=== PATIENT | male | born 1935 | race Hispanic/Latino ===

== ENCOUNTER → 2017-10-23 | Outpatient (CLI) | payer OTHER ==
[~2017-10-23] MED LIST: AMIO200T2 PO; ASPI-555 PO; ATOR40TA71 PO; CIPR-278 PO; INSU100I13 SQ; LEVO250T2 PO; LISI-617 PO; TAMS-1 PO; TYL3 PO
== END | disposition home or self-care (01) ==
LOC: RAH 10:46
PROVIDERS: ATTEND Urology
DX: N20.0 Calculus of kidney (principal)
CPT/HCPCS: 74018; 76100

== ENCOUNTER 2017-12-01 10:00 | Day surgery (SDC) | payer OTHER ==
[2017-11-30 12:44] LABS: HEMATOCRIT 39.4 % (42-54); MEAN CORPUSCULAR HEMOGLOBIN 31.2 pg (27.0-33.0); MEAN CORPUSCULAR HGB CONC 35.2 g/dL (32.0-36.0); MEAN CORPUSCULAR VOLUME 88.6 fL (79-99); NUCLEATED RED BLOOD CELLS 0.1 % (0.0-0.19); PLATELET COUNT (AUTO) 204 K/uL (130-400); RED BLOOD CELL COUNT(AUTO) 4.45 MIL/uL (4.50-6.20); RED CELL DISTRIBUTION WIDTH 15.9 % (11.0-15.5); WHITE BLOOD COUNT (AUTO) 6.3 K/uL (4.8-10.8)
[2017-11-30 12:52] LABS: APPEARANCE,URINE Clear (CLEAR); BILIRUBIN,URINE Negative (NEGATIVE); COLOR,URINE Yellow (YELLOW); GLUCOSE, URINE (UA) Negative (NEGATIVE); KETONES,URINE Negative (NEGATIVE); LEUKOCYTE ESTERASE ,URINE Small (NEGATIVE); NITRATE,URINE Negative (NEGATIVE); OCCULT BLOOD,URINE Moderate (NEGATIVE); PH,URINE 5.5 (5.0-8.0); PROTEIN,URINE Negative (NEGATIVE)
[2017-11-30 13:04] LABS: CREATININE 1.1 mg/dL (0.5-1.5); POTASSIUM 4.4 mmol/L (3.5-5.1)
[2017-11-30 13:06] LABS: INR 0.96 (0.85-1.15); PARTIAL THROMBOPLASTIN TIME 28.4 SEC (26.3-35.5); PROTHROMBIN TIME 10.1 SEC (9.6-11.6)
[2017-11-30 13:08] LABS: BACTERIA,URINE None Seen /HPF (None Seen); WBC,URINE 0-1 /HPF (0-1)
[2017-11-30 13:11] VITALS: BP 128/71
[~2017-12-01] VITALS: Ht 180.3 cm; Wt 94.7 kg
[2017-12-01] VITALS (12 sets, daily range): BP systolic 121–154; BP diastolic 70–89
[~2017-12-01 10:00] MED LIST changes: -ASPI-555 PO; -CIPR-278 PO; +LACTATED RINGERS 1000ML 1,000 ML IV SCH; -LEVO250T2 PO; +LEVOFLOXACIN 500 MG/D5W 100 ML 100 ML IV SCH; -TAMS-1 PO; -TYL3 PO
[2017-12-01] MEDS ORDERED: SODIUM CHLORIDE 0.9% 1000ML 1,000 ML IV ONE (10:51)
[2017-12-01] MEDS ORDERED: LEVOFLOXACIN 500 MG/D5W 100 ML 100 ML ONE (10:53)
[2017-12-01] MEDS ORDERED: ASPI-555 PO (11:07)
[2017-12-01] MEDS ORDERED: PROPOFOL 10 MG/ML 20ML VIAL IV ONE (12:52)
[2017-12-01] MEDS ORDERED: FENTANYL CITRATE PF 50 MCG/1 ML 2ML VIAL ONE (12:53)
[2017-12-01] MEDS ORDERED: SODIUM CHLORIDE 0.9% 10 ML VIAL ONE (12:57)
[2017-12-01] MEDS ORDERED: ONDANSETRON HCL 4 MG/2 ML VIAL ONE (12:57)
[2017-12-01] MEDS ORDERED: PHENYLEPHRINE HCL 10 MG/ML 1ML VIAL IV ONE (12:57)
[2017-12-01] MEDS ORDERED: CIPR-278 PO (16:12)
[2017-12-01] MEDS ORDERED: TYL3 PO (16:12)
== END 2017-12-01 16:35 | disposition home or self-care (01) ==
LOC: DAH 10:00
PROVIDERS: ATTEND Urology
DX: N20.0 Calculus of kidney (principal); Z79.4 Long term (current) use of insulin; Z79.899 Other long term (current) drug therapy; I21.3 ST elevation (STEMI) myocardial infarction of unspecified site; E78.5 Hyperlipidemia, unspecified; K29.60 Other gastritis without bleeding; E11.9 Type 2 diabetes mellitus without complications
CPT/HCPCS: 36415; 50590; 74018; 80048; 81001; 82948 ×2; 85027; 85610; 85730; 87088; 93005; A4600; J1956; J2370; J2405; J2704; J3010; J7030

== ENCOUNTER → 2017-12-16 | Outpatient (CLI) | payer OTHER ==
[~2017-12-16] MED LIST changes: +ASPI-555 PO; +CIPR-278 PO; -LACTATED RINGERS 1000ML 1,000 ML IV SCH; -LEVOFLOXACIN 500 MG/D5W 100 ML 100 ML IV SCH; +TYL3 PO
== END ==
LOC: RAH 11:47
PROVIDERS: ATTEND Urology
DX: N20.0 Calculus of kidney (principal)
CPT/HCPCS: 74018; 76100

== ENCOUNTER → 2018-01-18 | Outpatient (CLI) | payer OTHER ==
[~2018-01-18] MED LIST changes: -AMIO200T2 PO; +AMIO200T5 PO
== END | disposition home or self-care (01) ==
LOC: RAH 08:16
PROVIDERS: ATTEND Internal Medicine
DX: N20.0 Calculus of kidney (principal); Z87.442 Personal history of urinary calculi
CPT/HCPCS: 74018; 76100

== ENCOUNTER → 2018-12-20 | Outpatient (CLI) | payer OTHER | END | disposition home or self-care (01) | LOC: RAH 12:01 | PROVIDERS: ATTEND Urology | DX: N20.0 Calculus of kidney (principal) | CPT/HCPCS: 74018; 76100 ==